=== PATIENT | male | born 1955 | race Caucasian/White ===

== ENCOUNTER 2017-10-24 13:46 | Outpatient (CLI) | payer BC, OTHER ==
[2013-07-15 12:30] VITALS: O2SAT 96
== END 2017-10-24 13:47 | disposition home or self-care (01) | DRG 556 ==
LOC: CONVCARE 13:46
PROVIDERS: ATTEND Orthopaedic Surgery
DX: M25.562 Pain in left knee (principal); M16.12 Unilateral primary osteoarthritis, left hip
CPT/HCPCS: 73502; 73560

== ENCOUNTER 2017-11-07 05:29 | Inpatient (IN) | payer OTHER ==
[2017-11-07] MEDS ORDERED: SCOPOLAMINE 1.5MG PATCH TD ONE (05:39)
[2017-11-07] MEDS ORDERED: LACTATED RINGERS 1,000 ML IV ONE (06:00)
[2017-11-07] MEDS ORDERED: SCOPOLAMINE 1.5MG PATCH TD SCH (06:00)
[2017-11-07] MEDS ORDERED: LACTATED RINGERS 1,000 ML IV SCH (07:00)
[2017-11-07] MEDS ORDERED: SODIUM CHLORIDE 20 ML 40 ML ONE (07:03)
[2017-11-07] MEDS ORDERED: BUPIVACAINE LIPOSOME 20 ML SUS ONE (07:04)
[2017-11-07] MEDS ORDERED: BUPIVACAINE HCL 0.25% MPF 10 ML SOL INFIL ONE (07:04)
[2017-11-07] MEDS ORDERED: MIDAZOLAM 2 MG/2 ML SOL ONE ×2 (07:43→09:15)
[2017-11-07] MEDS ORDERED: HYDROMORPHONE 1 MG/ML SYRINGE ONE (07:44)
[2017-11-07] MEDS ORDERED: CEFAZOLIN SODIUM 1 GM PDS ONE ×2 (07:46→16:01)
[2017-11-07] MEDS ORDERED: KETAMINE HYDROCHLORIDE 50 MG/ML SOL ONE (07:46)
[2017-11-07] MEDS ORDERED: PROPOFOL 500 MG/50 ML EMU IV ONE (07:46)
[2017-11-07] MEDS ORDERED: ONDANSETRON HCL 4 MG/2 ML SOL ONE (08:44)
[2017-11-07] MEDS ORDERED: DEXAMETHASONE 20 MG/5 ML (4 MG/ML SOL) ONE (08:44)
[2017-11-07] MEDS ORDERED: METOCLOPRAMIDE HYDROCHLORIDE 5 MG/ML SOL ONE (08:44)
[2017-11-07] MEDS: TRANEXAMIC ACID 100 MG/ML SOL ONE ×2 (08:50→10:36)
[2017-11-07] MEDS ORDERED: EPHEDRINE SULFATE 50 MG/ML SOL ONE (08:51)
[2017-11-07] MEDS ORDERED: HYDROMORPHONE HCL 2 MG/ML SOL IV PRN (11:24)
[2017-11-07] MEDS ORDERED: DIAZEPAM 5 MG TAB PO PRN (11:24)
[2017-11-07] MEDS ORDERED: SODIUM CHLORIDE 0.9% 500 ML 500 ML IV PRN (11:24)
[2017-11-07] MEDS ORDERED: ONDANSETRON HCL 4 MG/2 ML SOL IV PRN (11:24)
[2017-11-07] MEDS ORDERED: BISACODYL 10 MG SUP PR PRN (11:24)
[2017-11-07] MEDS ORDERED: ONDANSETRON 4 MG ODT BU PRN (11:24)
[2017-11-07] MEDS ORDERED: ZOLPIDEM TARTRATE 5 MG TAB PO PRN (11:24)
[2017-11-07] MEDS ORDERED: FLEET ENEMA PR PRN (11:24)
[2017-11-07] MEDS ORDERED: MAGNESIUM HYDROXIDE 30 ML SUS PO PRN (11:24)
[2017-11-07] MEDS ORDERED: ACETAMINOPHEN 325 MG PO PRN (11:24)
[2017-11-07] MEDS ORDERED: ALUMINUM/MAGNESIUM 30 ML SUS PO PRN (11:24)
[2017-11-07] MEDS: DEXTROSE/SALINE 0.45/KCL 20MEQ 1,000 ML/1,000 ML SOL IV SCH ×2 (11:54→22:23)
[2017-11-07] MEDS: SODIUM CHLORIDE 0.9% FLUSH 10 ML SOL IV SCH ×2 (11:54→19:16)
[2017-11-07] MEDS ORDERED: SODIUM CHLORIDE 0.9% 100 ML 100 ML IV ONE (16:01)
[2017-11-07] MEDS: FELODIPINE 5 MG PO SCH (16:23)
[2017-11-07] MEDS: CEFAZOLIN SODIUM 1 GM PDS 2 GM in SODIUM CHLORIDE 0.9% 100 ML 100 ML IV SCH (16:56)
[2017-11-07] MEDS: GABAPENTIN 300 MG CAP PO SCH (21:15)
[2017-11-07] MEDS: SENNOSIDES A AND B 8.6 MG TAB PO SCH (21:15)
[2017-11-07] MEDS: APAP/OXYCODONE 325/5 TAB PO PRN (21:42)
[2017-11-08] MEDS ORDERED: SODIUM CHLORIDE 0.9% 100 ML 100 ML IV ONE (01:02)
[2017-11-08] MEDS ORDERED: CEFAZOLIN SODIUM 1 GM PDS ONE (01:02)
[2017-11-08] MEDS: CEFAZOLIN SODIUM 1 GM PDS 2 GM in SODIUM CHLORIDE 0.9% 100 ML 100 ML IV SCH (01:10)
[2017-11-08] MEDS: APAP/OXYCODONE 325/5 TAB PO PRN ×5 (01:15→21:14)
[2017-11-08] MEDS: SODIUM CHLORIDE 0.9% FLUSH 10 ML SOL IV SCH ×4 (02:00→21:15)
[2017-11-08] MEDS ORDERED: HYDROCHLOROTHIAZIDE 25 MG TAB PO SCH (07:00)
[2017-11-08 07:13] LABS: MEAN CORPUSCULAR HGB CONC 36.4 gm/dl (32.0-36.0)
[2017-11-08] MEDS ORDERED: ATORVASTATIN CALCIUM 80 MG TAB PO SCH (09:00)
[2017-11-08] MEDS ORDERED: PATIENT EDUCATION 1 MISC PRN (09:00)
[2017-11-08] MEDS ORDERED: CANDESARTAN 32 MG PO SCH (09:00)
[2017-11-08] MEDS: DEXTROSE/SALINE 0.45/KCL 20MEQ 1,000 ML/1,000 ML SOL IV SCH (09:12)
[2017-11-08] MEDS: FERROUS SULFATE 325 MG TAB PO SCH (09:14)
[2017-11-08] MEDS: ASPIRIN EC 81 MG PO SCH (09:14)
[2017-11-08] MEDS: RIVAROXABAN 10 MG TAB PO SCH (09:15)
[2017-11-08] MEDS ORDERED: ATORVASTATIN 10 MG TAB PO SCH (09:15)
[2017-11-08] MEDS: GABAPENTIN 300 MG CAP PO SCH ×2 (09:15→21:14)
[2017-11-08] MEDS: FELODIPINE 5 MG PO SCH (15:39)
[2017-11-08] MEDS: ATORVASTATIN 10 MG TAB PO SCH (17:55)
[2017-11-08] MEDS: SENNOSIDES A AND B 8.6 MG TAB PO SCH (21:13)
[2017-11-09] MEDS: APAP/OXYCODONE 325/5 TAB PO PRN ×5 (01:24→21:14)
[2017-11-09] MEDS: SODIUM CHLORIDE 0.9% FLUSH 10 ML SOL IV SCH ×3 (06:14→21:11)
[2017-11-09 07:13] LABS: MEAN CORPUSCULAR HGB CONC 35.8 gm/dl (32.0-36.0)
[2017-11-09] MEDS: FERROUS SULFATE 325 MG TAB PO SCH (08:22)
[2017-11-09] MEDS: GABAPENTIN 300 MG CAP PO SCH ×2 (08:22→21:12)
[2017-11-09] MEDS: ASPIRIN EC 81 MG PO SCH (08:22)
[2017-11-09] MEDS: RIVAROXABAN 10 MG TAB PO SCH (08:22)
[2017-11-09] MEDS: ATORVASTATIN 10 MG TAB PO SCH (17:16)
[2017-11-09] MEDS: SENNOSIDES A AND B 8.6 MG TAB PO SCH (21:12)
[2017-11-10] MEDS: APAP/OXYCODONE 325/5 TAB PO PRN (06:06)
[2017-11-10] MEDS: SODIUM CHLORIDE 0.9% FLUSH 10 ML SOL IV SCH (06:06)
[2017-11-10 07:14] LABS: MEAN CORPUSCULAR HGB CONC 33.9 gm/dl (32.0-36.0)
[2017-11-10 07:27] VITALS: BP 112/71; PULSE 78; RESP 16; TEMP 97; O2SAT 95
[2017-11-10] MEDS: FERROUS SULFATE 325 MG TAB PO SCH (08:23)
[2017-11-10] MEDS: ASPIRIN EC 81 MG PO SCH (08:23)
[2017-11-10] MEDS: GABAPENTIN 300 MG CAP PO SCH (08:23)
[2017-11-10] MEDS: RIVAROXABAN 10 MG TAB PO SCH (08:23)
== END 2017-11-10 13:50 | disposition home or self-care (01) | DRG 470 ==
LOC: ACUTE CARE 05:29
PROVIDERS: ADMIT Orthopaedic Surgery; ATTEND Orthopaedic Surgery
PROC: F01ZDFZ Gait and/or Balance Assessment using Assistive, Adaptive, Supportive or Protective Equipment (ICD-10-PCS; 2017-11-07)
PROC: F01ZBZZ Bed Mobility Assessment (ICD-10-PCS; 2017-11-07)
PROC: F01ZCZZ Transfer Assessment (ICD-10-PCS; 2017-11-07)
PROC: 0SRB04A Replacement of Left Hip Joint with Ceramic on Polyethylene Synthetic Substitute, Uncemented, Open Approach (ICD-10-PCS; principal; 2017-11-07 08:00)
PROC: F02Z1ZZ Dressing Assessment (ICD-10-PCS; 2017-11-09)
PROC: F02Z0ZZ Bathing/Showering Assessment (ICD-10-PCS; 2017-11-09)
PROC: F02Z3ZZ Grooming/Personal Hygiene Assessment (ICD-10-PCS; 2017-11-09)
DX: M16.12 Unilateral primary osteoarthritis, left hip (principal); Z96.642 Presence of left artificial hip joint; I10 Essential (primary) hypertension
CPT/HCPCS: 36415; 73501; 73502; 85027; 85049; 94150; 99070; J0690; J1100; J2250; J2405; J2765; A6232; A6402; J1170; J2704

== ENCOUNTER 2017-12-05 10:30 | Outpatient (CLI) | payer OTHER ==
[2017-11-10 07:27] VITALS: O2SAT 95
== END 2017-12-05 10:31 | disposition home or self-care (01) | DRG 561 ==
LOC: CONVCARE 10:30
PROVIDERS: ATTEND Orthopaedic Surgery
DX: Z47.1 Aftercare following joint replacement surgery (principal); Z96.642 Presence of left artificial hip joint
CPT/HCPCS: 73502